=== PATIENT | female | born 1995 | race African-American/Black ===

== ENCOUNTER 2019-12-03 17:15 | Emergency (ER) | payer BC ==
[~2019-12-03] VITALS: Ht 408.9 cm; Wt 88.8 kg
[~2019-12-03 17:15] MED LIST: COREG6.25 MG PO; ENOXAPARIN40 MG/0.4 SUB-Q; FUROSEMIDE40 MG PO; LABETALOL HCL100 MG PO; LISINOPRIL5 MG PO; OXYCODONE-ACET1 EAC1 PO; POTASSIUM CHLO20 ME1 PO; ZOLOFT50 MG PO
[2019-12-03] MEDS ORDERED: PYRIDIUM200 MG PO (18:29)
[2019-12-03] MEDS ORDERED: MACROBID 100 M100 MG PO (18:29)
== END 2019-12-03 18:40 | disposition home or self-care (01) ==
LOC: ED 17:15
DX: N39.0 Urinary tract infection, site not specified (principal); F17.200 Nicotine dependence, unspecified, uncomplicated; Z79.899 Other long term (current) drug therapy
CPT/HCPCS: 81001; 84703; 87077; 87088; 87186; 99283

== ENCOUNTER 2025-09-07 18:23 | Emergency (ER) | payer BC ==
[~2025-09-07] VITALS: Ht 408.9 cm; Wt 72.7 kg
[~2025-09-07 18:23] MED LIST changes: +KEFLEX500 MG PO; +MACROBID 100 M100 MG PO; +PYRIDIUM200 MG PO
[2025-09-07 22:11] VITALS: BP 120/87
== END 2025-09-07 22:11 | disposition left against medical advice (07) ==
LOC: ED 18:23
DX: Z53.21 Procedure and treatment not carried out due to patient leaving prior to being seen by health care provider (principal)